=== PATIENT | male | born 1970 | race Caucasian/White ===

== ENCOUNTER 2025-07-12 08:13 | Outpatient (CLI) | payer BC | END 2025-07-12 08:14 | disposition home or self-care (01) | LOC: SCSRAD 08:13 | DX: J90 Pleural effusion, not elsewhere classified (principal) | CPT/HCPCS: 71046 ==

== ENCOUNTER 2025-07-23 14:27 | Emergency (ER) | payer BC ==
[2025-07-23 15:21] LABS: #Basophils 0.13 10x3/uL (0.0-0.2); #Eosinophils 2.02 10x3/uL (0.0-0.7); #Monocytes 0.99 10x3/uL (0.11-0.59); #Neutrophils 4.79 10x3/uL (1.40-6.50); %Basophils 1.3 % (0.0-1.0); %Eosinophils 20.5 % (0.0-10.0); %Lymphocytes 19.5 % (21.0-51.0); %Monocytes 10.0 % (0.0-10.0); %Neutrophils 48.5 % (42.0-75.0); Hematocrit 29.6 % (42.0-52.0); Hemoglobin 9.4 g/dL (14.0-18.0); Mean Corpuscular Hemoglobin 27.4 pg (27.0-31.0); Mean Corpuscular Volume 86.3 fL (78.0-98.0); Platelet Count 532 10x3/uL (130-400); Red Blood Cell (RBC) Count 3.43 mill/uL (4.70-6.10); White Blood Cell (WBC) Count 9.87 10x3/uL (4.8-10.8)
[2025-07-23 15:52] LABS: ALT (SGPT) 8 U/L (Less than 45); AST (SGOT) 20 U/L (11-34); Albumin 3.3 g/dL (3.1-4.5); Alkaline Phosphatase 95 U/L (40-110); Anion Gap 12 mmol/L (10-20); BUN (Urea Nitrogen) 9 mg/dL (8.4-25.7); Bilirubin, Total 0.1 mg/dL (0.3-1.2); Calc. Creatinine Clearance 0 mL/min (70-130); Calcium 8.7 mg/dL (7.8-10.44); Carbon Dioxide 25 mmol/L (22-29); Chloride 106 mmol/L (98-107); Globulin 4.3 g/dL (2.4-3.5); Glucose 93 mg/dL (70-105); Potassium 3.9 mmol/L (3.5-5.1); Sodium 139 mmol/L (136-145)
== END 2025-07-23 20:39 | disposition left against medical advice (07) ==
LOC: ERS 14:27
DX: T81.41XA Infection following a procedure, superficial incisional surgical site, initial encounter (principal); K57.92 Diverticulitis of intestine, part unspecified, without perforation or abscess without bleeding; Z79.899 Other long term (current) drug therapy; Z79.51 Long term (current) use of inhaled steroids; R10.12 Left upper quadrant pain; Z98.890 Other specified postprocedural states; R93.5 Abnormal findings on diagnostic imaging of other abdominal regions, including retroperitoneum; S22.32XK Fracture of one rib, left side, subsequent encounter for fracture with nonunion; J94.8 Other specified pleural conditions
CPT/HCPCS: 74177; 80053; 83605; 85025; 87040; 96374; J3010; Q9967